=== PATIENT | female | born 1960 | race Two or more races ===

== ENCOUNTER 2019-07-04 09:36 | Outpatient (CLI) | payer OTHER | END 2019-07-04 09:48 | disposition home or self-care (01) | LOC: LAB 09:36 | DX: J11.1 Influenza due to unidentified influenza virus with other respiratory manifestations (principal); D64.89 Other specified anemias ==

== ENCOUNTER 2021-01-29 06:24 | Emergency (ER) | payer OTHER ==
[~2021-01-29] VITALS: Ht 152.4 cm; Wt 86.2 kg
[2021-01-29] MEDS ORDERED: FORTAMET1000 MG (06:27)
[2021-01-29] MEDS ORDERED: ZIAC 2.5-6.251 EACH (06:28)
[2021-01-29] MEDS ORDERED: GLIMEPIRIDE4 M1 (06:28)
== END 2021-01-29 12:19 | disposition home or self-care (01) ==
LOC: ER 06:24
DX: R10.31 Right lower quadrant pain (principal)

== ENCOUNTER 2021-09-24 10:41 | Emergency (ER) | payer OTHER ==
[~2021-09-24] VITALS: Ht 154.9 cm; Wt 111.1 kg
[~2021-09-24 10:41] MED LIST: FORTAMET1000 MG; GLIMEPIRIDE4 M1; ZIAC 2.5-6.251 EACH
[2021-09-24] MEDS ORDERED: KETO10TA2 PO (16:28)
[2021-09-24] MEDS ORDERED: NORFLEX100MG PO (16:28)
== END 2021-09-24 16:30 | disposition home or self-care (01) ==
LOC: ER 10:41
DX: M54.50 Low back pain, unspecified (principal); E11.9 Type 2 diabetes mellitus without complications; Z79.84 Long term (current) use of oral hypoglycemic drugs; I10 Essential (primary) hypertension

== ENCOUNTER 2024-06-04 08:00 | Emergency (ER) | payer OTHER ==
[~2024-06-04] VITALS: Ht 152.4 cm; Wt 83.9 kg
[~2024-06-04 08:00] MED LIST changes: +ETODOLAC400 MG PO; +KETO10TA2 PO; +NORFLEX100MG PO
[2024-06-04] MEDS ORDERED: PLAQUENIL PO (08:07)
[2024-06-04] MEDS ORDERED: FARXIGA10 MG PO (08:07)
[2024-06-04] MEDS ORDERED: CEFTRIAXONE SODIUM 1,000 MG VIAL IV ONE (08:45)
[2024-06-04] MEDS ORDERED: TAMSULOSIN HCL 0.4 MG CAP PO ONE ×2 (08:45→08:49)
[2024-06-04] MEDS ORDERED: MEPERIDINE HCL/PF 25 MG/ML VIAL IM ONE (08:45)
[2024-06-04] MEDS ORDERED: CEFTRIAXONE SODIUM 1,000 MG VIAL ONE (08:49)
[2024-06-04 09:12] LABS: HEMATOCRIT 36.7 % (36.0-45.00); HEMOGLOBIN 11.7 g/dL (12.0-15.00); MEAN CELL VOLUME 88.7 fL (80.00-100.00); MEAN CORPUSCULAR HEMOGLOBIN 28.3 pg (27.00-32.0); MEAN CORPUSCULAR HGB CONC 31.9 g/dl (32.0-36.0); PLATELET COUNT 280 K/uL (150-450); RED BLOOD COUNT 4.14 M/uL (4.00-6.00); RED CELL DISTRIBUTION WIDTH 13.6 % (11.5-14.5)
[2024-06-04 09:40] LABS: INR 1.01; PARTIAL THROMBOPLASTIN TIME 24.2 SECONDS (22.0-34.0)
[2024-06-04 10:00] LABS: ALBUMIN 3.1 gm/dL (3.4-5.0); BILIRUBIN TOTAL 0.28 mg/dL (0.3-1.2); CALCIUM 9.4 mg/dL (8.5-10.1); CREATININE SERUM 1.35 mg/dL (0.55-1.02); GFR 39.48; GLOBULINA 4.8 G/DL (2.4-3.5); POTASSIUM 3.91 mEq/L (3.5-5.1); TOTAL PROTEIN 7.9 gm/dL (6.4-8.2)
[2024-06-04 10:22] LABS: PH,URINE 5.5 (5.0-8.0); URINE APPEARANCE Clear; URINE BILIRRUBIN Negative (NEGATIVE); URINE BLOOD Large; URINE COLOR Yellow; URINE KETONE Negative (NEGATIVE); URINE LEUKOCYTE Negative; URINE NITRATE Negative; URINE PROTEIN Negative (NEGATIVE); URINE UROBILINOGEN 0.2 E.U./dl
[2024-06-04 10:26] LABS: URINE BACTERIA 23.2 uL (0.0-1933); URINE EPITHELIAL CELLS 44.1 uL (0.0-38.8); URINE RBC 327.7 uL (0.0-20.8); URINE WBC 7.4 uL (0.0-23.2)
[2024-06-04] MEDS ORDERED: 0.9 % SODIUM CHLORIDE 1,000 ML IV ONE (10:30)
[2024-06-04 10:45] LABS: URINE CAST 0.58 uL (0.0-1.40); URINE GLUCOSE >=1000 MG/DL (NEGATIVE)
[2024-06-04] MEDS ORDERED: BACTRIM DS TAB1 EACH PO (15:08)
[2024-06-04] MEDS ORDERED: TAMS0.4C PO (15:08)
[2024-06-04] MEDS ORDERED: DOLOGESIC 500-1 EACH PO (15:08)
[2024-06-04] MEDS ORDERED: PEPCID AC20 MG PO (15:08)
== END 2024-06-04 15:59 | disposition home or self-care (01) ==
LOC: ER 08:03
PROVIDERS: General Practice
DX: R10.9 Unspecified abdominal pain (principal); I10 Essential (primary) hypertension; E11.9 Type 2 diabetes mellitus without complications; Z79.84 Long term (current) use of oral hypoglycemic drugs; Z88.6 Allergy status to analgesic agent
CPT/HCPCS: 36415; 74176; 96365; 96366; 96372; 99284; J0696; J3490; J7030

== ENCOUNTER 2024-06-14 08:59 | Outpatient (CLI) | payer OTHER ==
[~2024-06-14 08:59] MED LIST changes: +BACTRIM DS TAB1 EACH PO; +DOLOGESIC 500-1 EACH PO; +FARXIGA10 MG PO; +PEPCID AC20 MG PO; +PLAQUENIL PO; +TAMS0.4C PO
== END 2024-06-14 09:08 | disposition home or self-care (01) ==
LOC: RAD 08:59
PROVIDERS: ATTEND Internal Medicine Cardiovascular Disease
DX: R10.9 Unspecified abdominal pain (principal); R31.9 Hematuria, unspecified

== ENCOUNTER 2024-08-18 10:11 | Outpatient (CLI) | payer OTHER | END 2024-08-18 10:27 | disposition home or self-care (01) | LOC: TOM 10:11 | PROVIDERS: ATTEND Urology | DX: N20.1 Calculus of ureter (principal); R91.8 Other nonspecific abnormal finding of lung field; J84.112 Idiopathic pulmonary fibrosis ==

== ENCOUNTER 2024-11-24 10:39 | Outpatient (CLI) | payer OTHER | END 2024-11-24 10:44 | disposition home or self-care (01) | LOC: SONOGRAMA 10:39 | PROVIDERS: ATTEND Internal Medicine Cardiovascular Disease | DX: M19.90 Unspecified osteoarthritis, unspecified site (principal) ==